=== PATIENT | female | born 1995 | race Caucasian/White ===

== ENCOUNTER 2017-05-26 00:35 | Emergency (ER) | payer OTHER ==
[~2017-05-26] VITALS: Ht 162.6 cm; Wt 78.2 kg
[2017-05-26 01:17] VITALS: BP 111/72
== END 2017-05-26 01:49 | disposition home or self-care (01) ==
LOC: EMS 00:36
DX: O99.341 Other mental disorders complicating pregnancy, first trimester (principal); O26.891 Other specified pregnancy related conditions, first trimester; R20.0 Anesthesia of skin; Z3A.12 12 weeks gestation of pregnancy
CPT/HCPCS: 99281